=== PATIENT | female | born 1985 | race Caucasian/White ===

== ENCOUNTER → 2018-03-16 | Outpatient (CLI) | payer OTHER ==
[~2018-03-16] MED LIST: BACTRIM DS 8001 TAB PO; LOMOTIL 0.025 M1 TAB PO; ULTRAM 50MG TAB50 MG PO; ZOFRAN8 MG PO; [UNRECOGNIZED DRUG - OTHER] PO
== END ==
LOC: COL.VAS 09:00
DX: I42.1 Obstructive hypertrophic cardiomyopathy (principal); Z82.49 Family history of ischemic heart disease and other diseases of the circulatory system

== ENCOUNTER → 2018-05-25 | Outpatient (CLI) | payer OTHER | LOC: COL.PUL 13:00 | DX: R06.02 Shortness of breath (principal) ==

== ENCOUNTER 2018-08-09 13:21 | Emergency (ER) | payer OTHER ==
[~2018-08-09] VITALS: Ht 175.3 cm; Wt 72.7 kg
[2018-08-09 13:51] LABS: COLLECTION METHOD CLEAN CATCH
[2018-08-09 14:00] LABS: PH 8 (5-8); SQUAMOUS EPITHELIAL 0-2 /hpf; URINE APPEARANCE Clear; URINE BACTERIA None Seen /hpf; URINE BILIRUBIN Negative (NEGATIVE); URINE BLOOD Negative (NEGATIVE); URINE COLOR Yellow; URINE GLUCOSE Negative (NEGATIVE); URINE KETONE Negative (NEGATIVE); URINE LEUKOCYTE ESTERASE Negative (NEGATIVE); URINE NITRATE Negative (NEGATIVE); URINE PROTEIN(semi-quant) Negative (NEGATIVE); URINE RBC 0-2 /hpf; URINE UROBILINOGEN Negative (NEGATIVE)
[2018-08-09 14:18] LABS: BASO % 0.6 % (0.0-2.0); EOS # 0.1 (0.0-0.7); EOS % 0.8 % (0-4.0); GRAN # 4.5 (1.4-6.5); GRAN % 62.2 % (42.2-75.2); LYMPH # 2.1 (1.2-3.4); LYMPH % 29.2 % (20.0-51.0); MEAN CELL VOLUME 91 fl (80.0-100.0); MEAN CORPUSCULAR HEMOGLOBIN 30 pg (27.0-31.0); MEAN CORPUSCULAR HGB CONC 33 g/dl (33.0-37.0); MONO # 0.5 (0.1-0.6); MONO % 6.9 % (1.7-9.3); PLATELET COUNT 307 K/mm3 (130-400); RED BLOOD COUNT 4.38 M/mm3 (4.10-5.30); REDCELL DISTRIBUTION WIDTH-CV 12.8 % (11.5-14.5)
[2018-08-09 14:32] LABS: ALANINE AMINOTRANSFERASE 7 U/L (9-52); ALBUMIN 4.3 gm/dL (3.5-5.0); ALKALINE PHOSPHATASE 47 U/L (50-136); ANION GAP 11 mmol/L (7-16); AST,SGOT 23 U/L (15-37); BILIRUBIN,TOTAL 0.3 mg/dL (0.0-1.0); BLOOD UREA NITROGEN 9 mg/dL (7-17); CALCIUM 9.4 mg/dL (8.4-10.2); CARBON DIOXIDE 25 mmol/L (22-30); CHLORIDE 105 mmol/L (98-107); GLUCOSE 98 mg/dL (74-106); POTASSIUM 4.1 mmol/L (3.4-5.0); SODIUM 141 mmol/L (137-145); TOTAL PROTEIN 7.3 gm/dL (6.4-8.2)
[2018-08-09 14:34] LABS: C-REACTIVE PROTEIN < 0.5 mg/dL (0.0-0.9)
[2018-08-09 16:17] VITALS: BP 129/83; PULSE 64; TEMP 98
== END 2018-08-09 17:15 | disposition home or self-care (01) ==
LOC: COL.ER 13:21
PROVIDERS: Nurse Practitioner
DX: R10.30 Lower abdominal pain, unspecified (principal)
CPT/HCPCS: J1885; J2405; Q9967

== ENCOUNTER → 2020-06-26 | Outpatient (CLI) | payer OTHER ==
[~2020-06-26] MED LIST changes: +CRUTCHES MC
== END ==
LOC: COL.RAD 11:38
DX: R10.11 Right upper quadrant pain (principal)

== ENCOUNTER → 2020-07-11 | Outpatient (CLI) | payer OTHER | LOC: COL.RAD 11:34 | DX: R10.11 Right upper quadrant pain (principal); R10.13 Epigastric pain | CPT/HCPCS: A9537 ==

== ENCOUNTER 2020-10-28 17:16 | Emergency (ER) | payer OTHER ==
[~2020-10-28] VITALS: Ht 175.3 cm; Wt 84.1 kg
[~2020-10-28 17:16] MED LIST changes: -CRUTCHES MC
[2020-10-28 17:33] VITALS: TEMP 98.2
[2020-10-28] MEDS ORDERED: CRUTCHES MC (19:54)
[2020-10-28 20:20] VITALS: BP 129/89; PULSE 76
== END 2020-10-28 20:20 | disposition home or self-care (01) ==
LOC: COL.ER 17:16
DX: S93.401A Sprain of unspecified ligament of right ankle, initial encounter (principal); W10.9XXA Fall (on) (from) unspecified stairs and steps, initial encounter

== ENCOUNTER 2023-02-06 13:53 | Inpatient (IN) | payer OTHER ==
[~2023-02-06] VITALS: Ht 175.3 cm; Wt 84.5 kg
[~2023-02-06 13:53] MED LIST changes: +CARAFATE 1GM1 G PO; +CRUTCHES MC; +PRIL40 PO
[2023-02-06 17:06] LABS: BASO % 0.3 % (0.0-2.0); EOS # 0.1 K/mm3 (0.0-0.7); EOS % 1.2 % (0.0-4.0); GRAN # 6.2 K/mm3 (1.4-6.5); GRAN % 66.4 % (42.2-75.2); HEMATOCRIT 41.2 % (37.0-47.0); HEMOGLOBIN 13.4 g/dl (12.5-16.0); LYMPH # 2.1 K/mm3 (1.2-3.4); LYMPH % 22.8 % (20.0-51.0); MEAN CELL VOLUME 92 fl (80.0-100.0); MEAN CORPUSCULAR HEMOGLOBIN 30 pg (27-31); MEAN CORPUSCULAR HGB CONC 33 g/dl (33.0-37.0); MEAN PLATELET VOLUME 8.9 fl (7.4-10.4); MONO # 0.9 K/mm3 (0.1-0.6); MONO % 9.1 % (1.7-9.3); PLATELET COUNT 327 K/mm3 (130-400); REDCELL DISTRIBUTION WIDTH-CV 12.7 % (11.5-14.5)
[2023-02-06 17:20] LABS: ALBUMIN 3.8 gm/dL (3.5-5.0); BILIRUBIN,TOTAL 0.4 mg/dL (0.2-1.2); C-REACTIVE PROTEIN 4.52 mg/dL (0.00-0.50); CALCIUM 9.1 mg/dL (8.4-10.2); CREATININE, serum 0.81 mg/dL (0.57-1.11); POTASSIUM 3.6 mmol/L (3.5-4.5); TOTAL PROTEIN 7.3 gm/dL (6.2-8.1)
[2023-02-06] MEDS ORDERED: WELLBUTRIN XL150 MG PO (19:46)
[2023-02-06] MEDS ORDERED: ESTARYLLA 35 MC1 TAB PO (19:46)
[2023-02-06 20:00] VITALS: BP 125/84; PULSE 79; TEMP 98.3
[2023-02-06 20:45] LABS: HEMATOCRIT 42.3 % (37.0-47.0); HEMOGLOBIN 13.5 g/dl (12.5-16.0); MEAN CELL VOLUME 92 fl (80.0-100.0); MEAN CORPUSCULAR HEMOGLOBIN 29 pg (27-31); MEAN CORPUSCULAR HGB CONC 32 g/dl (33.0-37.0); MEAN PLATELET VOLUME 9.3 fl (7.4-10.4); PLATELET COUNT 338 K/mm3 (130-400); RED BLOOD COUNT 4.62 M/mm3 (4.10-5.30); REDCELL DISTRIBUTION WIDTH-CV 12.8 % (11.5-14.5)
[2023-02-06] MEDS ORDERED: ADDERALL XR30 MG PO (21:23)
[2023-02-06] MEDS ORDERED: DESYREL 50MG50 MG PO (21:28)
[2023-02-06] MEDS ORDERED: KLONOPIN 0.5MG0.5 MG PO (21:32)
[2023-02-06 21:40] LABS: CREATININE, serum 0.84 mg/dL (0.57-1.11); MAGNESIUM 1.9 mg/dL (1.6-2.6); POTASSIUM 3.4 mmol/L (3.5-4.5)
[2023-02-06 23:49] VITALS: BP 129/79; PULSE 87; TEMP 98.1
[2023-02-07] VITALS (12 sets, daily range): BP systolic 101–129; BP diastolic 65–75; PULSE 70–85; TEMP 97.6–98.1
--- NOTE | 2023-02-07 05:30 | NUR ---
PT ARRIVED TO THE MEDICAL FLOOR AROUND 2000HRS TO ROOM 318. PT A&O X 4; VSS; O2 RA. PT COMPLAINED OF PAIN TO LEFT THUMB/WRIST/UPPER ARM. PT GIVEN ROXICODONE AND TORADOL FOR PAIN. PT FELT THE 2ND DOSE OF ROXICODONE AND THE TORADOL WERE EFFECTIVE FOR HER PAIN. PT DENIED CHEST PAIN, PALPITATIONS, SOB, N,V,D OR DIZZINESS. ADMISSIONS ASSESSMENT AND MED REC COMPLETE. PT ORIENTED TO ROOM AND HOSPITAL POLICY. ALL QUESTIONS AND CONCERNS ADDRESSED. PT EXPRESSED NO ADDITIONAL NEEDS AT THIS TIME. CALL LIGHT WITHIN REACH
[2023-02-07 10:17] LABS: BASO % 0.5 % (0.0-2.0); EOS # 0.1 K/mm3 (0.0-0.7); EOS % 1.5 % (0.0-4.0); GRAN # 3.5 K/mm3 (1.4-6.5); LYMPH # 1.9 K/mm3 (1.2-3.4); LYMPH % 30.1 % (20.0-51.0); MEAN CELL VOLUME 89 fl (80.0-100.0); MEAN CORPUSCULAR HEMOGLOBIN 30 pg (27-31); MEAN CORPUSCULAR HGB CONC 33 g/dl (33.0-37.0); MEAN PLATELET VOLUME 9.1 fl (7.4-10.4); MONO # 0.7 K/mm3 (0.1-0.6); MONO % 10.6 % (1.7-9.3); PLATELET COUNT 316 K/mm3 (130-400); RED BLOOD COUNT 4.37 M/mm3 (4.10-5.30); REDCELL DISTRIBUTION WIDTH-CV 12.7 % (11.5-14.5)
[2023-02-07 10:37] LABS: CALCIUM 8.6 mg/dL (8.4-10.2); CREATININE, serum 0.79 mg/dL (0.57-1.11); POTASSIUM 3.8 mmol/L (3.5-4.5)
--- NOTE | 2023-02-07 10:47 | NUR ---
PATIENT IS AXOX4. VSS. RESTING IN BED. INDEPENDENT IN ROOM. TREATING CAT BITE WITH ABX AND MONITORING THE SITE. PATIENT TAKES OXYCODONE AND TORADOL TO EASE THE PAIN. ASSESSMENT COMPLETE.
--- NOTE | 2023-02-07 12:13 | NUR ---
SW met with patient to complete intake. Patient informed SW that her PCP was Dr Norman with [facility] in [place] and her pharmacy of choice is [facility]. Patient NOK is David Man (life partner) [phone], they reside in [facility]. No DPOA. Patient reports that she is independent with ADL's and currently does not utilize any DME's. Patient is excepting to D/C back to her home pending any further medical recommendations.
[2023-02-08] VITALS (12 sets, daily range): BP systolic 108–127; BP diastolic 51–81; PULSE 66–109; TEMP 97.7–98.5
[2023-02-08 06:34] LABS: BASO % 0.6 % (0.0-2.0); EOS # 0.2 K/mm3 (0.0-0.7); EOS % 3.1 % (0.0-4.0); GRAN # 3.3 K/mm3 (1.4-6.5); GRAN % 50.4 % (42.2-75.2); HEMATOCRIT 38.1 % (37.0-47.0); HEMOGLOBIN 12.6 g/dl (12.5-16.0); LYMPH # 2.3 K/mm3 (1.2-3.4); LYMPH % 35.1 % (20.0-51.0); MEAN CELL VOLUME 90 fl (80.0-100.0); MEAN CORPUSCULAR HEMOGLOBIN 30 pg (27-31); MEAN CORPUSCULAR HGB CONC 33 g/dl (33.0-37.0); MEAN PLATELET VOLUME 9.1 fl (7.4-10.4); MONO # 0.7 K/mm3 (0.1-0.6); MONO % 10.5 % (1.7-9.3); PLATELET COUNT 307 K/mm3 (130-400); RED BLOOD COUNT 4.23 M/mm3 (4.10-5.30); REDCELL DISTRIBUTION WIDTH-CV 12.7 % (11.5-14.5)
[2023-02-08 06:51] LABS: CALCIUM 8.6 mg/dL (8.4-10.2); CREATININE, serum 0.76 mg/dL (0.57-1.11); POTASSIUM 3.9 mmol/L (3.5-4.5)
--- NOTE | 2023-02-08 10:23 | NUR ---
Assessment completed at approximately 1000. Rated pain to left thumb/wrist 6/10. Toradol administered IV- currently rates pain /10. Left thumb/wrist with 2 scabbed puncture wounds. No drainage or redness noted. Edema noted around puncture wounds. Pt reports ROM has improved since yesterday. Hand deal architect unequal. Independent in room. Denies any needs at this time.
[2023-02-08] MEDS ORDERED: WELLBUTRIN XL300 M1 PO (14:44)
[2023-02-08] MEDS ORDERED: ADDERALL10 MG PO (14:54)
[2023-02-08] MEDS ORDERED: AMOXICILLIN 8751 TAB PO (14:59)
--- NOTE | 2023-02-08 19:15 | NUR ---
Pt rec'd Toradol twice today for c/o swelling/pain to left thumb/wrist. Reports pain decreased from 5/10 to 3/10 after Toradol administered. Independent in room Denies needs at this time.
[2023-02-09 00:05] VITALS: BP_SYST 120
[2023-02-09 03:05] VITALS: BP 122/65; PULSE 79; TEMP 98
[2023-02-09 04:05] VITALS: BP_SYST 122
--- NOTE | 2023-02-09 05:00 | NUR ---
ASSESSMENT COMPLETE FOR [employer]. PT COMPLAINED OF SOME LEFT THUMB/WRIST/UPPER ARM AREA TIGHTNESS/PAIN. PT GIVEN TORADOL FOR TIGHTNESS/PAIN. PT FELT THE TORADOL WAS EFFECTIVE FOR HER TIGHTNESS/PAIN. PT DENIED CHEST PAIN, PALPITATIONS, SOB, N,V,D OR DIZZINESS. PT REFUSED HER VTE PROPHYLAXIS (LOVENOX, SCD'S), STATING SHE AMBULATES FREQUENTLY. CALL LIGHT WITHIN REACH.
[2023-02-09 06:48] LABS: BASO % 0.5 % (0.0-2.0); EOS # 0.2 K/mm3 (0.0-0.7); EOS % 2.6 % (0.0-4.0); GRAN # 3.7 K/mm3 (1.4-6.5); HEMATOCRIT 37.9 % (37.0-47.0); HEMOGLOBIN 12.4 g/dl (12.5-16.0); LYMPH % 30.4 % (20.0-51.0); MEAN CELL VOLUME 90 fl (80.0-100.0); MEAN CORPUSCULAR HEMOGLOBIN 30 pg (27-31); MEAN CORPUSCULAR HGB CONC 33 g/dl (33.0-37.0); MEAN PLATELET VOLUME 9.1 fl (7.4-10.4); MONO # 0.6 K/mm3 (0.1-0.6); MONO % 9.2 % (1.7-9.3); PLATELET COUNT 317 K/mm3 (130-400); RED BLOOD COUNT 4.21 M/mm3 (4.10-5.30); REDCELL DISTRIBUTION WIDTH-CV 12.5 % (11.5-14.5)
[2023-02-09 06:57] LABS: CALCIUM 8.4 mg/dL (8.4-10.2); CREATININE, serum 0.74 mg/dL (0.57-1.11); POTASSIUM 3.9 mmol/L (3.5-4.5)
[2023-02-09 07:28] VITALS: BP 100/65; PULSE 70; TEMP 97.8
[2023-02-09 09:15] VITALS: BP_SYST 100
--- NOTE | 2023-02-09 09:15 | NUR ---
Assessment completed. Pt sitting up in bed visiting with her sister. Rates pain 3/10- decline offer for Toradol or Tylenol. No redness noted to left thumb/wrist but it still has some swelling. ROM improved from yesterday. Independent in room. Denies needs at this time.
--- NOTE | 2023-02-09 11:45 | NUR ---
Discharge instructions reviewed with patient- verbalizes understanding. INT to [facility] d/c'd. Pt escorted to private vehicle and discharged home.
== END 2023-02-09 11:45 | disposition home or self-care (01) | DRG 603 ==
LOC: COL.ER 13:53 → MEDICAL 19:19
PROVIDERS: Nurse Practitioner; Physician Assistant; ADMIT Internal Medicine
DX: L03.012 Cellulitis of left finger (principal); K21.9 Gastro-esophageal reflux disease without esophagitis; W55.01XA Bitten by cat, initial encounter; Y93.89 Activity, other specified; Y92.89 Other specified places as the place of occurrence of the external cause; Z23 Encounter for immunization
CPT/HCPCS: J0295; J1885; J2270

== ENCOUNTER 2023-04-26 10:24 | Emergency (ER) | payer OTHER ==
[~2023-04-26] VITALS: Ht 175.3 cm; Wt 84.1 kg
[~2023-04-26 10:24] MED LIST changes: +ADDERALL XR30 MG PO; +ADDERALL10 MG PO; +AMOXICILLIN 8751 TAB PO; +DESYREL 50MG50 MG PO; +ESTARYLLA 35 MC1 TAB PO; +KLONOPIN 0.5MG0.5 MG PO; +WELLBUTRIN XL150 MG PO; +WELLBUTRIN XL300 M1 PO
[2023-04-26 10:31] VITALS: TEMP 98.6
[2023-04-26 11:18] LABS: BASO % 0.5 % (0.0-2.0); EOS # 0.2 K/mm3 (0.0-0.7); EOS % 1.8 % (0.0-4.0); GRAN % 69.7 % (42.2-75.2); HEMATOCRIT 41.3 % (37.0-47.0); HEMOGLOBIN 13.3 g/dl (12.5-16.0); LYMPH # 1.9 K/mm3 (1.2-3.4); LYMPH % 21.4 % (20.0-51.0); MEAN CELL VOLUME 92 fl (80.0-100.0); MEAN CORPUSCULAR HEMOGLOBIN 30 pg (27-31); MEAN CORPUSCULAR HGB CONC 32 g/dl (33.0-37.0); MONO # 0.6 K/mm3 (0.1-0.6); MONO % 6.4 % (1.7-9.3); PLATELET COUNT 338 K/mm3 (130-400); RED BLOOD COUNT 4.48 M/mm3 (4.10-5.30); REDCELL DISTRIBUTION WIDTH-CV 13.1 % (11.5-14.5)
[2023-04-26 11:54] LABS: ALANINE AMINOTRANSFERASE 29 U/L (0-55); ALBUMIN 3.8 gm/dL (3.5-5.0); ALKALINE PHOSPHATASE 75 U/L (40-150); AST,SGOT 20 U/L (5-34); BILIRUBIN,TOTAL 0.3 mg/dL (0.2-1.2); BLOOD UREA NITROGEN 13 mg/dL (7-19); CALCIUM 9.6 mg/dL (8.4-10.2); CARBON DIOXIDE 21 mmol/L (22-29); CREATININE, serum 0.87 mg/dL (0.57-1.11); GLUCOSE 103 mg/dL (70-99); TOTAL PROTEIN 6.8 gm/dL (6.2-8.1)
[2023-04-26 12:15] LABS: TROPONIN-I < 0.010 ng/mL (0.00-0.033)
[2023-04-26 13:23] LABS: ANION GAP 9 mmol/L (7-16); CHLORIDE 109 mmol/L (98-107); POTASSIUM 3.8 mmol/L (3.5-4.5); SODIUM 139 mmol/L (136-145)
[2023-04-26 14:06] VITALS: BP 132/80; PULSE 76
== END 2023-04-26 14:07 | disposition home or self-care (01) ==
LOC: COL.ER 10:24
PROVIDERS: Physician Assistant
DX: R06.02 Shortness of breath (principal); R07.89 Other chest pain; Z79.899 Other long term (current) drug therapy

== ENCOUNTER 2023-10-21 20:38 | Emergency (ER) | payer OTHER ==
[~2023-10-21] VITALS: Ht 175.3 cm; Wt 85.5 kg
[2023-10-21 20:54] VITALS: TEMP 98.1
[2023-10-22] MEDS ORDERED: Mag/Al Hydrox/Simeth Susp 30 ML CUP PO ONE (00:30)
[2023-10-22] MEDS ORDERED: NS 1,000 ML IV ONE (00:30)
[2023-10-22 01:07] LABS: COLLECTION METHOD CLEAN CATCH
[2023-10-22 01:11] LABS: ALBUMIN 4.2 g/dL (3.5-5.0); BILIRUBIN,TOTAL 0.4 mg/dL (0.2-1.2); C-REACTIVE PROTEIN 0.16 mg/dL (0.00-0.50); CALCIUM 9.4 mg/dL (8.4-10.2); CREATININE, serum 0.88 mg/dL (0.57-1.11); POTASSIUM 4.2 mEq/L (3.5-4.5); TOTAL PROTEIN 7.3 g/dl (6.2-8.1)
[2023-10-22 01:13] LABS: PH 5.5 (5.0-8.5); URINE APPEARANCE CLEAR (CLEAR/HAZY); URINE BLOOD NEGATIVE (NEGATIVE); URINE COLOR YELLOW (YELLOW); URINE GLUCOSE NEGATIVE (NEGATIVE); URINE KETONE NEGATIVE (NEGATIVE); URINE NITRATE NEGATIVE (NEGATIVE); URINE PROTEIN(semi-quant) NEGATIVE (NEGATIVE); URINE UROBILINOGEN 0.2 E.U/dL (0.2-1.0)
[2023-10-22 01:15] LABS: BASO % 0.3 % (0.0-2.0); EOS # 0.1 K/mm3 (0.0-0.7); EOS % 1.5 % (0.0-4.0); GRAN # 5.3 K/mm3 (1.4-6.5); GRAN % 57.8 % (42.2-75.2); HEMATOCRIT 39.5 % (37.0-47.0); HEMOGLOBIN 12.9 g/dl (12.5-16.0); LYMPH # 2.8 K/mm3 (1.2-3.4); LYMPH % 30.3 % (20.0-51.0); MEAN CELL VOLUME 90 fl (80.0-100.0); MEAN CORPUSCULAR HEMOGLOBIN 29 pg (27-31); MEAN CORPUSCULAR HGB CONC 33 g/dl (33.0-37.0); MEAN PLATELET VOLUME 8.9 fl (7.4-10.4); MONO # 0.9 K/mm3 (0.1-0.6); MONO % 9.8 % (1.7-9.3); PLATELET COUNT 300 K/mm3 (130-400)
[2023-10-22] MEDS ORDERED: Iohexol 300 - 100 ML VIAL IV ONE (01:22)
[2023-10-22 01:23] LABS: ERYTHROCYTE SEDIMENTATION RATE 5 mm/hr (0-20)
[2023-10-22] MEDS ORDERED: NS 50 ML IV ONE (01:24)
[2023-10-22] MEDS ORDERED: PEPCID 20MG TAB20 MG PO (04:49)
[2023-10-22] MEDS ORDERED: CARAFATE 1GM1 G PO (04:49)
[2023-10-22 05:00] VITALS: BP 131/88; PULSE 70
== END 2023-10-22 05:00 | disposition home or self-care (01) ==
LOC: COL.ER 20:38
PROVIDERS: Emergency Medicine
DX: R10.13 Epigastric pain (principal)
CPT/HCPCS: J7030; Q9967